=== PATIENT | female | born 1980 | race Caucasian/White ===

== ENCOUNTER 2016-09-29 12:02 | Outpatient (CLI) | payer MEDICAID | END 2016-09-29 12:03 | disposition home or self-care (01) | DX: N63 Unspecified lump in breast (principal) ==

== ENCOUNTER 2018-12-19 08:00 | Outpatient (CLI) | payer MEDICAID, OTHER ==
[2018-12-19 19:13] LABS: BASOPHILS # (AUTO) 0.1 10^3/uL (0.0-0.1); BASOPHILS % (AUTO) 1.6 %; EOSINOPHILS % (AUTO) 0.3 %; HGB - HEMOGLOBIN 13.9 g/dL (12.0-16.0); LYMPHOCYTES # (AUTO) 1.3 10^3/uL (1.5-3.5); LYMPHOCYTES % (AUTO) 25.4 %; MEAN CORPUSCULAR HEMOGLOBIN 31.3 pg (27.0-31.0); MEAN CORPUSCULAR HGB CONC 33.5 g/dL (32.0-36.0); MEAN CORPUSCULAR VOLUME 93.3 fL (81.0-99.0); MEAN PLATELET VOLUME 8.9 fL (7.9-10.8); MONOCYTES # (AUTO) 0.3 10^3/uL (0.0-1.0); NEUTROPHILS # (AUTO) 3.5 10^3/uL (1.5-6.6); NEUTROPHILS % (AUTO) 67.7 %; PLT - PLATELET COUNT 285 10^3/uL (130-450); RED BLOOD COUNT 4.43 10^6/uL (4.20-5.40); WHITE BLOOD COUNT 5.2 x10^3/uL (4.8-10.8)
[2018-12-19 19:33] LABS: ALBUMIN 4.3 g/dL (3.2-5.5); ALBUMIN/GLOBULIN RATIO 1.4 (1.0-2.2); BILIRUBIN,TOTAL 0.8 mg/dL (0.2-1.0); CALCIUM 9.1 mg/dL (8.5-10.3); CREATININE 0.7 mg/dL (0.4-1.0); TOTAL PROTEIN 7.4 g/dL (6.7-8.2)
[2018-12-19 19:41] LABS: THYROID STIMULATING HORMONE 0.86 uIU/mL (0.34-5.60)
[2018-12-19 19:50] LABS: FOLATE 15.85 ng/mL (5.90 - >24.8)
== END 2018-12-19 23:59 | disposition home or self-care (01) ==
LOC: LAB.N 08:00
PROVIDERS: ATTEND Nurse Practitioner
DX: R53.83 Other fatigue (principal); E55.9 Vitamin D deficiency, unspecified
CPT/HCPCS: 36415; 80053; 82306; 82607; 82746; 84443; 85025

== ENCOUNTER 2019-01-17 09:42 | Outpatient (CLI) | payer MEDICAID ==
--- NOTE | 2019-01-17 10:19 | Mammography Report ---
Reason: BILATERAL BREAST PAIN Procedure Date: 01/17/2019 Accession Number: [id number] / [id number] Procedure: NATALIYA - Diagnostic Dig Bilat CPT Code: FULL RESULT: EXAM: Diagnostic Dig Bilat DATE: 01/17/2019 10:09 AM CLINICAL HISTORY: Cyclical bilateral nonlocalized breast pain, not present today. No reported personal or family history of breast cancer. TECHNIQUE: (B) - Bilateral CC and MLO views were obtained. Additional bilateral 90 degree lateral views obtained. COMPARISON: 09/29/2016 PARENCHYMAL PATTERN: (D) - The breasts demonstrate heterogeneously dense fibroglandular parenchyma bilaterally. FINDINGS: Bilateral breasts: There is a stable oval mass with circumscribed margins in the anterior lower inner left breast. There are no mammographic findings of concern to correspond to cyclical nonlocalized bilateral breast pain. There are no suspicious masses, calcifications, or areas of distortion. IMPRESSION: Bilateral breasts: Benign imaging findings. No imaging finding of concern to correspond to intermittent nonlocalized breast pain. Benign. BI-RADS Category 2. Recommend annual screening mammography. RECOMMENDATION: (ANNUAL) - Recommend routine annual screening mammography. BI-RADS CATEGORY: (2) - Benign Findings. STANDARD QUALIFYING STATEMENTS: 1. This examination was not reviewed with the aid of Computer-Aided Detection (CAD). 2. A negative or benign imaging report should not preclude biopsy if clinically suspicious findings are present. 3. Dense breasts may obscure an underlying neoplasm. 4. This examination was reviewed without the aid of 3D breast imaging (tomosynthesis).
== END 2019-01-17 09:43 | disposition home or self-care (01) ==
LOC: DI 09:42
PROVIDERS: ATTEND Nurse Practitioner
DX: N64.4 Mastodynia (principal)
CPT/HCPCS: 77066

== ENCOUNTER 2019-03-13 11:50 | Outpatient (CLI) | payer MEDICAID ==
[2019-03-13 12:11] LABS: BASOPHILS % (AUTO) 0.5 %; EOSINOPHILS # (AUTO) 0.1 10^3/uL (0.0-0.7); EOSINOPHILS % (AUTO) 1.6 %; HGB - HEMOGLOBIN 13.5 g/dL (12.0-16.0); LYMPHOCYTES # (AUTO) 1.5 10^3/uL (1.5-3.5); LYMPHOCYTES % (AUTO) 18.1 %; MEAN CORPUSCULAR HEMOGLOBIN 31.8 pg (27.0-31.0); MEAN CORPUSCULAR HGB CONC 34.1 g/dL (32.0-36.0); MEAN CORPUSCULAR VOLUME 93.4 fL (81.0-99.0); MEAN PLATELET VOLUME 9.9 fL (7.9-10.8); MONOCYTES # (AUTO) 0.5 10^3/uL (0.0-1.0); MONOCYTES % (AUTO) 6.1 %; NEUTROPHILS # (AUTO) 5.9 10^3/uL (1.5-6.6); NEUTROPHILS % (AUTO) 73.3 %; PLT - PLATELET COUNT 270 10^3/uL (130-450); RED BLOOD COUNT 4.24 10^6/uL (4.20-5.40); RED CELL DISTRIBUTION WIDTH 13.4 % (12.0-15.0); WHITE BLOOD COUNT 8.1 x10^3/uL (4.8-10.8)
[2019-03-13 12:19] LABS: CALCIUM 9.2 mg/dL (8.5-10.3); CREATININE 0.7 mg/dL (0.4-1.0)
== END 2019-03-13 11:51 | disposition home or self-care (01) ==
LOC: LAB 11:50
PROVIDERS: ATTEND Obstetrics & Gynecology
DX: N84.0 Polyp of corpus uteri (principal)
CPT/HCPCS: 80048; 85025

== ENCOUNTER 2019-03-14 10:50 | Day surgery (SDC) | payer MEDICAID ==
[~2019-03-14 10:50] MED LIST: CEFAZOLIN SODIUM IN 0.9 % NACL 2 GM/100 ML BAG IV ONE
[2019-03-14 11:15] LABS: HCG UR QUAL NEGATIVE
--- NOTE | 2019-03-14 11:29 | ANESTHESIA ---
Pre-Anesthesia VS, & Labs - Diagnosis left labial polyp - Procedure excision labial polyp Vital Signs: Temp Pulse Resp BP Pulse Ox 36.8 C 77 18 134/93 H 97 03/14/19 10:57 03/14/19 10:57 03/14/19 10:57 03/14/19 10:57 03/14/19 10:57 Height 5 ft Weight (kg) 58 kg - NPO >8 hours - Is Patient ?: No - Lab Results Lab results reviewed: Yes Home Medications and Allergies Home Medications: Ambulatory Orders Cholecalciferol (Vitamin D3) [Vitamin D] 6,000 unit PO DAILY 03/13/19 Loratadine [Claritin] 10 mg PO DAILY 03/13/19 Vitamin B Complex 1 each PO DAILY 03/13/19 Cholecalciferol (Vitamin D3) [Vitamin D] 6,000 unit PO DAILY 03/13/19 Loratadine [Claritin] 10 mg PO DAILY 03/13/19 Vitamin B Complex 1 each PO DAILY 03/13/19 Allergies/Adverse Reactions: Allergies Allergy/AdvReac Type Severity Reaction Status Date / Time adhesive tape AdvReac Rash Verified 03/13/19 11:45 Anes History & Medical History - Anesthetic History Anesthesia Complications: reports: Post-Operative Nausea/Vomiting Family history of Anesthesia Complications: Reports (nausea) Family history of Malignant Hyperthermia: Denies - Medical History Cardiovascular: reports: Murmur Pulmonary: reports: Pneumonia Gastrointestinal: reports: None Urinary: reports: None Musculoskeletal: reports: Other Endocrine/Autoimmune: reports: None Skin: reports: None - Surgical History Gynecologic: section, Other Orthopedic: Other Exam General: Alert, Oriented x3, Cooperative, No acute distress Dental: WNL Mouth Openin Fingerbreadth Neck Mobility: Normal Mallampati classification: II Thyromental Distance: 4-6 cm Respiratory: Lungs clear, Normal breath sounds, No respiratory distress, No accessory muscle use Cardiovascular: Regular rate, Normal S1, Normal S2 Plan Anesthesia Type: General Consent for Procedure(s) Verified and Reviewed: Yes Code Status: Attempt Resuscitation ASA classification: 1-Healthy patient Is this case an emergency?: No
[2019-03-14] MEDS ORDERED: LACTATED RINGERS 1,000 ML IV ONE ×2 (11:30→15:52)
[2019-03-14] MEDS ORDERED: KETAMINE 500 MG/10 ML VIAL IVP ONE (13:40)
[2019-03-14] MEDS ORDERED: LIDOCAINE-MPF 2% 5 ML VIAL IM ONE (13:40)
[2019-03-14] MEDS ORDERED: MIDAZOLAM 2 MG/2 ML VIAL IVP ONE (13:40)
[2019-03-14] MEDS ORDERED: PROPOFOL 200 MG/20 ML VIAL IVP ONE (13:40)
[2019-03-14] MEDS ORDERED: BUPIVACAINE 0.25%-EPI 1:200000 PF 30 ML VIAL ONE (13:52)
[2019-03-14] MEDS ORDERED: BUPIVACAINE 0.25%-EPI 1:200000 PF 10 ML VIAL SUBQ ONE ×2 (14:21)
[2019-03-14] MEDS ORDERED: SILVER NITRATE APPLICATOR TOP ONE (14:37)
[2019-03-14] MEDS ORDERED: BACITRACIN OINT TOP ONE (14:45)
[2019-03-14] MEDS ORDERED: LORazepam 2 MG/ML VIAL IVP PRN (15:17)
[2019-03-14] MEDS ORDERED: ONDANSETRON 4 MG/2 ML VIAL IVP PRN (15:17)
[2019-03-14] MEDS ORDERED: HYDROcod/ACETAM 10 MG/325 MG TABLET PO PRN (15:17)
[2019-03-14] MEDS ORDERED: HYDROmorphone 0.5 MG/0.5 ML SYRINGE IVP PRN (15:17)
--- NOTE | 2019-03-14 15:29 | OPERATIVE REPORT ---
Operative Report - General Procedure Date: 03/14/19 Planned Procedure: Excision of left labial mass and right mons mole Pre-Op Diagnosis: left labial mass and right mons mole Procedure Performed: Excision of left labial mass and right mons mole Post Op Diagnosis: Same - Procedure Note Primary Surgeon: Luis Briceño MD Anesthesia Provider: Pradip Mendez CRNA Anesthesia Technique: MAC Pathology: left labial mass and right mons mole IV Fluids (mL): 1,000 Estimated Blood Loss (mL): 5 Indications: left labial mass and right mons mole
[2019-03-14 15:47] VITALS: BP 124/84
[2019-03-14] MEDS ORDERED: HYDROcod/ACETAM 5/325 MG TABLET ONE (15:59)
--- NOTE | 2019-03-15 01:15 | OPERATIVE REPORT ---
DATE OF SERVICE: 03/14/2019 Physician: Luis Briceño MD PREOPERATIVE DIAGNOSIS: Left labial mass, right mons mole. POSTOPERATIVE DIAGNOSIS: Left labial mass, right mons mole. PROCEDURE PERFORMED: Excision of left labial mass and the right mons mole. SURGEON: Dr. Luis Briceño. ANESTHESIA PROVIDER: Pradip Mendez CRNA. ANESTHESIA: MAC. IV FLUIDS: 1000 mL ESTIMATED BLOOD LOSS: 5 mL FINDINGS: Left labia mass as well as right mons mole. DESCRIPTION OF PROCEDURE: Patient was placed in a supine position. Following adequate IV sedation, she was prepped and draped in the usual fashion. A timeout was performed with the patient identified as well as concerns addressed. The mass on the left labia, noted to be roughly 9 mm in diameter, was locally injected with 0.25% Marcaine with epinephrine. The mass was excised in toto with a #15 blade. Electrocautery was used for hemostasis at the base. The incision itself was then closed using 3-0 Vicryl subcuticular. The area was inspected. No further bleeding was noted. Attention was turned to the right mons mole. This was roughly 1 cm in diameter. This was excised in elliptical fashion. Electrocautery was used at the base for hemostasis. Hemostasis was noted to be good. This was then closed deep with 3-0 Vicryl and then a subcuticular stitch of 4-0 Monocryl was placed. At this point, the area was inspected, bleeding was noted, so this was treated with Dermabond. The labia was noted to have some oozing, so pressure was maintained for roughly 2 minutes continuously. There was no evidence of any bleeding. At this point, the procedure was terminated. Patient tolerated the procedure well and was taken to recovery in stable condition. TD: 03/14/2019 15:36 JESÚS
--- NOTE | 2019-03-15 02:58 | OPERATIVE REPORT ---
DATE OF SERVICE: 03/14/2019 Physician: Luis Briceño MD PREOPERATIVE DIAGNOSES 1. Left labial mass. 2. Right mons mole. POSTOPERATIVE DIAGNOSES 1. Left labial mass. 2. Right mons mole. PROCEDURE: Excision of left labial mass and excision of right mons mole. SURGEON: Luis Briceño MD ANESTHESIA: Pradip Mendez CRNA ANESTHETIC: MAC. MATERIALS TO PATHOLOGY: Left labial mass, right mons mole. ESTIMATED BLOOD LOSS: 5 mL INTRAVENOUS FLUIDS: 1000 mL DESCRIPTION OF PROCEDURE: Following adequate IV sedation, patient was placed in a supine position in Jimmy stirrups. At this point, she was prepped and draped in the usual fashion. A timeout was perf ormed, in which the issues were addressed and the patient identified. Following local anesthesia wit h 0.25% Marcaine with epinephrine in the left labia, the labial mass was excised in its entirety usin g a #15 blade. The base was treated with electrocautery and then closed utilizing 3-0 Vicryl with a subcuticular stitch of 3-0 Vicryl. The area showed evidence of good hemostasis. At this point, atte ntion was turned to the right mons mole. This was excised in elliptical fashion with a #15 blade. E lectrocautery was utilized at its base and it was closed deep with 3-0 Vicryl and then subcuticular w ith 4-0 Monocryl. Good hemostasis was observed and so Dermabond was placed on the mons excision site . Patient tolerated the procedure well and was taken to Recovery in stable condition. TD: 03/14/2019 16:20
== END 2019-03-14 10:51 | disposition home or self-care (01) ==
LOC: SDS 10:50
PROVIDERS: ATTEND Obstetrics & Gynecology
PROC: 0UBMXZZ Excision of Vulva, External Approach (ICD-10-PCS; principal; 2019-03-14 12:30)
DX: D28.0 Benign neoplasm of vulva (principal)
CPT/HCPCS: 11421; 12041; 81025; A9270; J0690; J7120

== ENCOUNTER 2019-05-19 14:32 | Emergency (ER) | payer MEDICAID ==
[2019-05-19] MEDS ORDERED: PROMETHAZINE INJ 25 MG in SODIUM CHLORIDE 0.9% 50 ML IV STA (15:06)
[2019-05-19] MEDS ORDERED: SODIUM CHLORIDE 0.9% 1,000 ML IV ONE (15:06)
[2019-05-19] MEDS ORDERED: diphenhydrAMINE INJ 50 MG/ML VIAL IVP STA (15:06)
[2019-05-19] MEDS ORDERED: KETOROLAC 30 MG/ML VIAL IVP STA (15:06)
--- NOTE | 2019-05-19 15:10 | ED Physician Documentation ---
History of Present Illness - Stated complaint Stated Complaint: FEVER/LORENZO - Chief complaint Chief Complaint: Fever - History obtained from History obtained from: Patient, Family - History of Present Illness Timing: How many days ago (2) Pain level max: 8 Pain level now: 6 Improved by: dark room, rest Worsened by: light, noise - Additonal information Additional information: 39-year-old female presents to the emergency department with fevers, headache and sinus pressure for the last 2 days. She has a history of migraine headaches and states that this feels more like sinus pressure. She is concerned that she may have histoplasmosis due to exposure from [place] over the summer. No neck or back pain. No abdominal pain. No vomiting. No diarrhea. No urinary symptoms. Took Tylenol earlier today. Review of Systems Constitutional: reports: Fever Ears: denies: Ear pain Nose: reports: Sinus pressure / pain. 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 : None HEENT: Chronic sinusitis Psych: None Musculoskeletal: Other Derm: None - Past Surgical History Past Surgical History: Yes Ortho: Other /ACCOUNTANT ASSISTANT: section, Other - Present Medications Home Medications: Ambulatory Orders Medication Instructions Recorded Confirmed Cholecalciferol (Vitamin D3) 6,000 unit PO DAILY 03/13/19 03/14/19 [Vitamin D] Loratadine [Claritin] 10 mg PO DAILY 03/13/19 03/14/19 Vitamin B Complex 1 each PO DAILY 03/13/19 03/14/19 Sulfamethox/Trimeth 800/160 1 each PO BID #20 tablet 05/19/19 [Bactrim Ds 800/160] - Allergies Allergies/Adverse Reactions: Allergies Allergy/AdvReac Type Severity Reaction Status Date / Time adhesive tape AdvReac Rash Verified 05/19/19 14:40 - Social History Does the pt smoke?: No Smoking Status: Never smoker Does the pt drink ETOH?: Yes Does the pt have substance abuse?: No - Immunizations Immunizations are current?: Yes - POLST Patient has POLST: No PD ED PE NORMAL - Vitals Vital signs reviewed: Yes - General General: Alert and oriented X 3, No acute distress, Well developed/nourished - HEENT HEENT: PERRL, Ears normal, Moist mucous membranes, Pharynx benign, Other (TTP over the frontal sinuses. ) - Neck Neck: Supple, no meningeal sign, No adenopathy - Cardiac Cardiac: RRR, Strong equal pulses - Respiratory Respiratory: No respiratory distress, Clear bilaterally - Abdomen Abdomen: Soft, Non tender, Non distended - Back Back: No CVA TTP, No spinal TTP - Derm Derm: Warm and dry, No rash - Extremities Extremities: No edema, No calf tenderness / cord - Neuro Neuro: Alert and oriented X 3, fighting vehicle systems maintainer 2-12 intact, No motor deficit, No sensory deficit, Normal speech - Psych Psych: Normal mood, Normal affect Results - Vitals Vitals: Vital Signs - 24 hr 05/19/19 05/19/19 14:38 16:24 Temperature 37.4 C 36.9 C Heart Rate 110 H 77 Respiratory 20 16 Rate Blood Pressure 112/70 96/59 L O2 Saturation 98 98 Oxygen O2 Source Room air - Labs Labs: Laboratory Tests 05/19/19 05/19/19 05/19/19 15:15 15:15 16:10 WBC 16.5 H RBC 4.01 L Hgb 12.9 Hct 37.6 MCV 93.8 MCH 32.2 H MCHC 34.3 RDW 13.2 Plt Count 244 MPV 9.4 Neut # (Auto) 14.2 H Lymph # (Auto) 0.7 L [place] # (Auto) 1.6 H Eos # (Auto) 0.0 Baso # (Auto) 0.1 Absolute Nucleated RBC 0.00 Band Neuts % (Manual) Not Reportable Abnorm Lymph % (Manual) Not Reportable Nucleated RBC % 0.0 Neutrophils # (Manual) Not Reportable Lymphocytes # (Manual) Not Reportable Monocytes # (Manual) Not Reportable Eosinophils # (Manual) Not Reportable Basophils # (Manual) Not Reportable Differential Comment MANUAL=AUTO DIFF Platelet Estimate NORMAL (130-450,000) Platelet Morphology NORMAL APPEARANCE RBC Morph Micro Appear NORMAL APPEARANCE Sodium 137 Potassium 3.1 L Chloride 105 Carbon Dioxide 23 Anion Gap 9.0 BUN 13 Creatinine 0.7 Estimated GFR (MDRD) 92 Glucose 135 H Calcium 9.0 Total Bilirubin 0.5 AST 12 ALT 12 Alkaline Phosphatase 65 Total Protein 7.2 Albumin 3.5 Globulin 3.7 Albumin/Globulin Ratio 0.9 L Lipase 20 L Urine Color YELLOW Urine Clarity CLOUDY Urine pH 6.0 Ur Specific [place] 1.020 Urine Protein 30 H Urine Glucose (UA) NEGATIVE Urine Ketones 40 H Urine Occult Blood MODERATE H Urine Nitrite NEGATIVE Urine Bilirubin NEGATIVE Urine Urobilinogen 1 (NORMAL) Ur Leukocyte Esterase TRACE H Urine RBC 6-10 H Urine WBC 6-10 H Ur Squamous Epith Cells RARE Squamous Urine Bacteria Rare Ur Microscopic Review INDICATED Urine Culture Comments INDICATED Urine HCG, Qual NEGATIVE - Rads (name of study) cxr Radiology: Prelim report reviewed, EMP read contemporaneously, See rad report (Normal) PD MEDICAL DECISION MAKING - ED course Complexity details: reviewed results, re-evaluated patient, considered differential, d/w patient ED course: 39-year-old female presents to the emergency department that appears to be sinusitis and a UTI. Will place on Bactrim for this. She feels better after IV fluids. Headache resolved with Toradol, Phenergan and Benadryl. Tolerating p.o. without difficulty. No evidence of histoplasmosis on x-ray. Blood work is not available to be ordered here for histo. Recommend that she follow-up with her doctor for further evaluation of this. Patient counseled regarding signs and symptoms for which I believe and urgent re-evaluation would be necessary. Patient with good understanding of and agreement to plan and is comfortable going home at this time This document was made in part using voice recognition software. While efforts are made to proofread this document, sound alike and grammatical errors may occur. Departure - Departure Disposition: Home, Self Care Clinical Impression: Sinusitis Qualifiers: Sinusitis location: frontal Chronicity: acute Recurrence: non-recurrent Qualified Code(s): J01.10 - Acute frontal sinusitis, unspecified UTI (urinary tract infection) Qualifiers: Urinary tract infection type: acute cystitis Hematuria presence: without hematuria Qualified Code(s): N30.00 - Acute cystitis without hematuria Condition: Good Instructions: ED Sinusitis Abx Tx, ED UTI Cystitis Female Follow-Up: Provider,Other [Primary Care Provider] - Within 1 week Prescriptions: Sulfamethox/Trimeth 800/160 [Bactrim Ds 800/160] 1 each PO BID #20 tablet Comments: Take all antibiotics until gone. Return if you worsen. Follow-up with your doctor for further care. Drink plenty of fluids Forms: Activity restrictions Discharge Date/Time: 05/19/19 17:02
[2019-05-19 15:22] LABS: BASOPHILS # (AUTO) 0.1 10^3/uL (0.0-0.1); BASOPHILS % (AUTO) 0.3 %; HGB - HEMOGLOBIN 12.9 g/dL (12.0-16.0); LYMPHOCYTES # (AUTO) 0.7 10^3/uL (1.5-3.5); MEAN CORPUSCULAR HEMOGLOBIN 32.2 pg (27.0-31.0); MEAN CORPUSCULAR HGB CONC 34.3 g/dL (32.0-36.0); MEAN CORPUSCULAR VOLUME 93.8 fL (81.0-99.0); MEAN PLATELET VOLUME 9.4 fL (7.9-10.8); MONOCYTES # (AUTO) 1.6 10^3/uL (0.0-1.0); MONOCYTES % (AUTO) 9.4 %; NEUTROPHILS # (AUTO) 14.2 10^3/uL (1.5-6.6); NEUTROPHILS % (AUTO) 85.6 %; PLT - PLATELET COUNT 244 10^3/uL (130-450); RED BLOOD COUNT 4.01 10^6/uL (4.20-5.40); RED CELL DISTRIBUTION WIDTH 13.2 % (12.0-15.0); WHITE BLOOD COUNT 16.5 x10^3/uL (4.8-10.8)
[2019-05-19 15:34] LABS: ALBUMIN 3.5 g/dL (3.2-5.5); ALBUMIN/GLOBULIN RATIO 0.9 (1.0-2.2); BILIRUBIN,TOTAL 0.5 mg/dL (0.2-1.0); CREATININE 0.7 mg/dL (0.4-1.0); TOTAL PROTEIN 7.2 g/dL (6.7-8.2)
[2019-05-19 15:53] LABS: DIFFERENTIAL COMMENT MANUAL=AUTO DIFF; PLATELET ESTIMATE, MANUAL NORMAL (130-450,000) (NORMAL); PLATELET MORPHOLOGY NORMAL APPEARANCE (NORMAL); RBC MORPHOLOGY (MULTIPLE) NORMAL APPEARANCE (NORMAL)
--- NOTE | 2019-05-19 16:00 | XRAY Report ---
Reason: fever Procedure Date: 05/19/2019 Accession Number: [id number] / [id number] Procedure: XR - Chest 2 View X-Ray CPT Code: 39946 FULL RESULT: EXAM: CHEST RADIOGRAPHY EXAM DATE: 05/19/2019 03:38 PM. CLINICAL HISTORY: Fever. COMPARISON: None. TECHNIQUE: 2 views. FINDINGS: Lungs/Pleura: No focal lung consolidation. No pleural effusion. No pneumothorax. Mediastinum: Cardiac silhouette size appears unremarkable. Other: None. IMPRESSION: No focal lung consolidation or pleural effusions. RADIA
[2019-05-19 16:16] LABS: GLUCOSE, URINE (UA) NEGATIVE (NEGATIVE); KETONES,URINE (UA) 40 mg/dL (NEGATIVE); LEUKOCYTE ESTERASE, URINE TRACE (NEGATIVE); NITRITE,URINE NEGATIVE (NEGATIVE); OCCULT BLOOD,URINE MODERATE (NEGATIVE); PROTEIN,URINE 30 mg/dL (NEGATIVE); UROBILINOGEN,URINE 1 (NORMAL) E.U./dL (NORMAL)
[2019-05-19 16:23] LABS: CLARITY,URINE CLOUDY (CLEAR)
[2019-05-19 16:24] LABS: BACTERIA,URINE Rare /HPF (None Seen); BILIRUBIN,URINE NEGATIVE (NEGATIVE); HCG UR QUAL NEGATIVE; ICTOTEST,URINE NEGATIVE; SQUAMOUS EPITHELIAL CELL,UR RARE Squamous (<= Few)
[2019-05-19 16:25] VITALS: BP 96/59
[2019-05-19] MEDS ORDERED: cefTRIAXone 1 GM VIAL IVP STA (16:38)
== END 2019-05-19 17:02 | disposition home or self-care (01) ==
LOC: ED 14:32
DX: J01.10 Acute frontal sinusitis, unspecified (principal); N30.00 Acute cystitis without hematuria; Z86.69 Personal history of other diseases of the nervous system and sense organs
CPT/HCPCS: 36415; 71046; 80053; 81001; 81025; 83690; 85025; 87086; 87181; 96365; 96375; 99283; 99285; J1200; J7040; 81003

== ENCOUNTER 2020-01-18 19:37 | Emergency (ER) | payer MEDICAID, OTHER ==
[2020-01-18 19:45] VITALS: BP 153/83
[2020-01-18] MEDS ORDERED: LIDOCAINE VISCOUS 2% 15 ML UDC MM STA (19:51)
--- NOTE | 2020-01-18 19:53 | ED Physician Documentation ---
PD HPI HEENT - Stated complaint Stated Complaint: FOREIGN OBJECT IN THROAT - Chief complaint Chief Complaint: Heent - History obtained from History obtained from: Patient (She was eating steak just prior to arrival and now has a severe foreign body sensation near the cricoid. 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 HEENT: Chronic sinusitis Psych: None Musculoskeletal: Other Derm: None - Past Surgical History Past Surgical History: Yes Ortho: Other /CHAIR CAR DRIVER: section, Other - Present Medications Home Medications: Ambulatory Orders Medication Instructions Recorded Confirmed Cholecalciferol (Vitamin D3) 6,000 unit PO DAILY 03/13/19 03/14/19 [Vitamin D] Loratadine [Claritin] 10 mg PO DAILY 03/13/19 03/14/19 Vitamin B Complex 1 each PO DAILY 03/13/19 03/14/19 Sulfamethox/Trimeth 800/160 1 each PO BID #20 tablet 05/19/19 [Bactrim Ds 800/160] - Allergies Allergies/Adverse Reactions: Allergies Allergy/AdvReac Type Severity Reaction Status Date / Time adhesive tape AdvReac Rash Verified 01/18/20 19:45 - Social History Does the pt smoke?: No Smoking Status: Never smoker Does the pt drink ETOH?: Yes Does the pt have substance abuse?: No - Immunizations Immunizations are current?: Yes - POLST Patient has POLST: No PD ED PE NORMAL - Vitals Vital signs reviewed: Yes - General General: Alert and oriented X 3, No acute distress - HEENT HEENT: Other (Voice is slightly hoarse, visualized portion of the oropharynx are normal. She is tolerating her secretions.) - Neck Neck: Supple, no meningeal sign, No bony TTP - Neuro Neuro: Alert and oriented X 3, Normal speech Results - Vitals Vitals: Vital Signs - 24 hr 01/18/20 01/18/20 19:41 20:12 Temperature 36.3 C L Heart Rate 76 Respiratory 16 16 Rate Blood Pressure 153/83 H O2 Saturation 100 Oxygen O2 Source Room air PD MEDICAL DECISION MAKING - ED course ED course: 39-year-old woman with a throat foreign body sensation after swallowing steak. She felt better briefly after lidocaine here. Soft tissue neck x-ray was negative. Her voice improved after the lidocaine and she was able to tolerate drinking water. I offered to either try to transfer her for ENT evaluation tonight or consideration for sedation and glide scope visualization. She prefers watchful waiting at home. Departure - Departure Disposition: Home, Self Care Clinical Impression: Foreign body sensation in throat Condition: Good Record reviewed to determine appropriate education?: Yes Instructions: ED Foreign Body Esophageal Rslv Comments: Return anytime if worse, if not better by Tuesday you can follow-up with ear nose and throat physicians, the closest is in [place], phone number is [phone]. I would stick to just liquids for the next 12 hours then you can try to advance to soft diet and then full diet if not having any issues. If you are fine on Tuesday I do not think any specific follow-up is necessary.
--- NOTE | 2020-01-18 20:31 | XRAY Report ---
Reason: FB sensation throat Procedure Date: 01/18/2020 Accession Number: [id number] / [id number] Procedure: XR - Neck Soft Tissue CPT Code: Final Report FULL RESULT: EXAM: SOFT TISSUE NECK RADIOGRAPHY EXAM DATE: 01/18/2020 08:14 PM. CLINICAL HISTORY: Foreign body sensation in throat. COMPARISONS: None. TECHNIQUE: 2 views. FINDINGS: Soft Tissues: No prevertebral soft tissue swelling. The epiglottis and aryepiglottic folds are unremarkable. No tonsillar or adenoidal enlargement. No radiopaque foreign body. Regional Skeleton: Unremarkable for age. Other: The visualized lung apices are clear. IMPRESSION: Normal soft tissue neck radiography. RADIA
== END 2020-01-18 20:50 | disposition home or self-care (01) ==
LOC: ED 19:37
DX: R09.89 Other specified symptoms and signs involving the circulatory and respiratory systems (principal)
CPT/HCPCS: 70360; 99283

== ENCOUNTER 2020-01-21 15:45 | Emergency (ER) | payer OTHER ==
[2020-01-21 17:57] VITALS: BP 134/77
--- NOTE | 2020-01-21 18:09 | ED Physician Documentation ---
PD HPI HEENT - Stated complaint Stated Complaint: FOREIGN OBJECT IN THROAT - Chief complaint Chief Complaint: Heent - History obtained from History obtained from: Patient - History of Present Illness Timing - onset: Other (I saw her 2 nights ago for foreign body sensation in throat. She was able to tolerate liquids and still cannot. The sensation is persistent. 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 : None HEENT: Chronic sinusitis Psych: None Musculoskeletal: Other Derm: None - Past Surgical History Past Surgical History: Yes Ortho: Other /SPLIT LEATHER DEPARTMENT SUPERVISOR: section, Other - Present Medications Home Medications: Ambulatory Orders Medication Instructions Recorded Confirmed Cholecalciferol (Vitamin D3) 6,000 unit PO DAILY 03/13/19 03/14/19 [Vitamin D] Loratadine [Claritin] 10 mg PO DAILY 03/13/19 03/14/19 Vitamin B Complex 1 each PO DAILY 03/13/19 03/14/19 Sulfamethox/Trimeth 800/160 1 each PO BID #20 tablet 05/19/19 [Bactrim Ds 800/160] - Allergies Allergies/Adverse Reactions: Allergies Allergy/AdvReac Type Severity Reaction Status Date / Time adhesive tape AdvReac Rash Verified 01/21/20 15:52 - Social History Does the pt smoke?: No Smoking Status: Never smoker Does the pt drink ETOH?: Yes Does the pt have substance abuse?: No Substance Use and Type: Marijuana - Immunizations Immunizations are current?: Yes - POLST Patient has POLST: No PD ED PE NORMAL - Vitals Vital signs reviewed: Yes - General General: Alert and oriented X 3, No acute distress - HEENT HEENT: Other (Voice sounds a little better than it did the other night. Still little hoarse and still appearing somewhat uncomfortable.) - Neuro Neuro: Alert and oriented X 3, Normal speech Results - Vitals Vitals: Vital Signs - 24 hr 01/21/20 01/21/20 01/21/20 15:52 17:53 17:57 Temperature 37.4 C 37.0 C 37.1 C Heart Rate 83 96 77 Respiratory 14 16 16 Rate Blood Pressure 149/82 H 124/70 134/77 H O2 Saturation 98 98 99 Oxygen O2 Source Room air Departure - Departure Disposition: 01 Home, Self Care Clinical Impression: Foreign body sensation in throat Condition: Good Record reviewed to determine appropriate education?: Yes Comments: Yadira I spoke with Dr. Aquilino Baron, I gave him your phone number, he says they will call you tomorrow morningbetween 730 and 8 AM to arrange to see you tomorrow.
== END 2020-01-21 18:34 | disposition home or self-care (01) ==
LOC: ED 15:45
DX: R09.89 Other specified symptoms and signs involving the circulatory and respiratory systems (principal); R49.0 Dysphonia
CPT/HCPCS: 99281; 99283

== ENCOUNTER 2020-09-30 10:25 | Outpatient (CLI) | payer OTHER | END 2020-09-30 10:26 | disposition home or self-care (01) | LOC: DI 10:25 | PROVIDERS: ATTEND Obstetrics & Gynecology | DX: R01.1 Cardiac murmur, unspecified (principal) | CPT/HCPCS: 93306 ==

== ENCOUNTER 2020-09-30 10:26 | Outpatient (CLI) | payer OTHER ==
--- NOTE | 2020-10-01 10:27 | Mammography Report ---
BILATERAL DIGITAL SCREENING MAMMOGRAM 3D/2D: 09/30/2020 CLINICAL: Routine screening. Comparison is made to exams dated: 01/17/2019 mammogram, 09/29/2016 ultrasound, and 09/29/2016 [facility]. The tissue of both breasts is heterogeneously dense. This may low er the sensitivity of mammography. There is a new irregular focal asymmetry with a circumscribed margin in the left breast at 6 o'clock middle depth. Finding is seen only on tomography. No other significant masses, calcifications, or other findings are seen in either breast. IMPRESSION: INCOMPLETE: NEEDS ADDITIONAL IMAGING EVALUATION The new irregular focal asymmetry in the left breast is indeterminate. A diagnostic mammogram and ultrasound is recommended. This exam was interpreted at Station ID: [id number]. NOTE: For mammograms, a report in lay terms will be sent to the patient. Approximately 15% of breast malignancies will not be visualized mammographically. In the management of a palpable breast mass, a negative mammogram must not discourage biopsy of a clinically suspicious lesion. Electronically Signed By: Rizwan Osorio acr/:09/30/2020 13:01:14 ACR BI-RADS Category 0: Incomplete 3340F PARENCHYMAL PATTERN: (D) - The breast(s) demonstrate(s) heterogeneously dense fibroglandular parran sauceda. BI-RADS CATEGORY: (0) - 0 Mammo and [place] [id number] Immediate follow-up LATERALITY: (L)
== END 2020-09-30 10:27 | disposition home or self-care (01) ==
LOC: DI 10:26
PROVIDERS: ATTEND Obstetrics & Gynecology
DX: Z12.31 Encounter for screening mammogram for malignant neoplasm of breast (principal); N64.89 Other specified disorders of breast

== ENCOUNTER 2020-10-17 10:56 | Outpatient (CLI) | payer OTHER ==
--- NOTE | 2020-10-20 12:56 | Ultrasound Report ---
LIMITED ULTRASOUND OF LEFT BREAST: 10/17/2020 CLINICAL: Short term follow up for the left breast. Comparison is made to exams dated: 10/17/2020 mammogram, 09/30/2020 mammogram, and 01/17/2019 mammogram - [facility]. Color flow and real-time ultrasound of the left breast 6 o'clock region were performed. Yuan scale i mages of the real-time examination were reviewed. There is a 1.1 cm x 0.7 cm x 0.3 cm oval mass with a microlobulated margin in the left breast at 5 o' clock middle depth 8 cm from the nipple. This oval mass is hypoechoic with a well-defined boundary. This correlates with mammography findings. Color flow imaging demonstrates that there is an adjacen t vascularity. IMPRESSION: PROBABLY BENIGN The 1.1 cm x 0.7 cm x 0.3 cm oval mass in the left breast resembles a lymph node or a fibroadenoma an d is probably benign. A follow-up mammogram and an ultrasound in 6 months is recommended to demonstrate stability. Exam findings were discussed with the patient. Patient is advised to monitor for significant change. This exam was interpreted at Station ID: [id number]. Electronically Signed By: Ulysses Curiel M.D. slc/:10/17/2020 13:09:59 Ultrasound BI-RADS: 3 Probably benign BI-RADS CATEGORY: (3) - 3 Mammo and [place] [id number] 6 month follow-up LATERALITY: (B)
--- NOTE | 2020-10-20 12:56 | Mammography Report ---
UNILATERAL LEFT DIGITAL DIAGNOSTIC MAMMOGRAM 3D/2D: 10/17/2020 CLINICAL: Patient returns today to evaluate a focal asymmetry in the left breast. Comparison is made to exams dated: 09/30/2020 mammogram, 01/17/2019 mammogram, and 09/29/2016 mammogram - [facility]. The tissue of left breast is heterogeneously dense. This may lower the sensitivity of mammography. There is a 1.5 cm oval mass with a microlobulated margin in the left breast at 6 o'clock middle depth . No other significant masses or calcifications are seen in the breast. IMPRESSION: INCOMPLETE: NEEDS ADDITIONAL IMAGING EVALUATION The 1.5 cm oval mass in the left breast is indeterminate. A targeted ultrasound is recommended and will immediately follow. This exam was interpreted at Station ID: [id number]. NOTE: For mammograms, a report in lay terms will be sent to the patient. Approximately 15% of breast malignancies will not be visualized mammographically. In the management of a palpable breast mass, a negative mammogram must not discourage biopsy of a clinically suspicious lesion. Electronically Signed By: Ulysses Curiel M.D. slc/:10/17/2020 13:05:31 ACR BI-RADS Category 0: Incomplete 3340F PARENCHYMAL PATTERN: (D) - The breast(s) demonstrate(s) heterogeneously dense fibroglandular cristo sauceda. BI-RADS CATEGORY: (0) - 0 Ultrasound [id number] Immediate follow-up LATERALITY: (B)
== END 2020-10-17 10:57 | disposition home or self-care (01) ==
LOC: DI 10:56
PROVIDERS: ATTEND Obstetrics & Gynecology
DX: N63.25 Unspecified lump in the left breast, overlapping quadrants (principal)

== ENCOUNTER 2020-11-27 09:26 | Outpatient (CLI) | payer OTHER ==
[~2020-11-27 09:26] MED LIST changes: +BUFFERED LIDOCAINE 10 ML SYRINGE ONE; -CEFAZOLIN SODIUM IN 0.9 % NACL 2 GM/100 ML BAG IV ONE
[2020-11-27] MEDS ORDERED: BUPIVACAINE 0.5% PF 10 ML VIAL ONE (10:59)
[2020-11-27] MEDS ORDERED: BUFFERED LIDOCAINE 10 ML SYRINGE ONE (10:59)
[2020-11-27] MEDS: BUFFERED LIDOCAINE 10 ML SYRINGE IU ONE ×2 (15:05→15:07)
[2020-11-27] MEDS ORDERED: LIDOCAINE 1%-EPI 1:100000 30 ML MDV SUBQ ONE (16:00)
[2020-11-27] MEDS ORDERED: LIDOCAINE MPF 1%-EPI 1:200000 30 ML VIAL SUBQ ONE (16:00)
--- NOTE | 2020-11-28 08:20 | Mammography Report ---
UNILATERAL LEFT DIGITAL DIAGNOSTIC MAMMOGRAM 3D/2D: 11/27/2020 CLINICAL: Post left breast ultrasound biopsy clip placement imaging. Comparison is made to exams dated: 10/17/2020 ultrasound and 10/17/2020 mammogram - [facility]. The tissue of left breast is heterogeneously dense. This may lower the sensitivity of ma mmography. There is a marker clip in the appropriate position in the left breast at 6 o'clock middle depth for m ass described at 8 cm from the nipple. This marker clip placement is at the biopsy site. There also is a marker clip in the appropriate position in the left breast at 5 o'clock middle depth seen toady at 7 cm from the nipple. This marker clip placement is at the biopsy site. IMPRESSION: POST PROCEDURE MAMMOGRAM FOR MARKER PLACEMENT There was a successful marker clip placement in the left breast at 6 o'clock middle depth. There was a successful marker clip placement in the left breast at 5 o'clock middle depth. This exam was interpreted at Station ID: [id number]. NOTE: For mammograms, a report in lay terms will be sent to the patient. Approximately 15% of breast malignancies will not be visualized mammographically. In the management of a palpable breast mass, a negative mammogram must not discourage biopsy of a clinically suspicious lesion. Electronically Signed By: Rodney Leonard M.D. aty/:11/27/2020 18:01:49 ACR BI-RADS Category Post-procedure mammogram for marker placement PARENCHYMAL PATTERN: (D) - The breast(s) demonstrate(s) heterogeneously dense fibroglandular parenchy ma. BI-RADS CATEGORY: () - Unspecified - other recall n/a LATERALITY: (B)
--- NOTE | 2020-12-01 10:00 | Ultrasound Report ---
ULTRASOUND GUIDED BIOPSY LEFT BREAST USING VACUUM DEVICE WITH MARKING DEVICE INSERTED AND POST MAMMOG RAPHIC IMAGIN11/27/2020 CLINICAL: Left breast mass. PATIENT CONSENT: Risks (minor bleeding, infection, vasovagal reaction and repeat procedure), benefits and alternatives were explained to the patient and written informed consent was obtained. Correlation is made to exams dated: 11/27/2020 mammogram, 10/17/2020 ultrasound, 10/17/2020 mammogram, 09/30/2020 mammogram, 01/17/2019 mammogram, and 09/29/2016 ultrasound - [facility]. An ultrasound guided biopsy using real-time ultrasound was performed for the 1.5 cm x 0.8 cm x 1.1 cm oval mass located in the left breast at 5 o'clock middle depth 7 cm from the nipple. The skin was p repped in the usual manner. Local anesthetic was administered to the access site. A skin jayden was m ines in the breast. The abnormality was approached from the lateral aspect. A 13 gauge biopsy needle was placed adjacent to the abnormality under ultrasound guidance. Once the needle was documented to be in the correct location, six specimens were obtained using the Mammotome biopsy system. A hydrom ark clip was inserted into the biopsy cavity. A sterile dressing was applied to the access site. Po st procedure mammographic imaging demonstrates the location device at the targeted area. The specime ns were sent to the laboratory for pathological analysis. IMPRESSION: ULTRASOUND GUIDED BIOPSY BENIGN Ultrasound guided biopsy of the 1.5 cm x 0.8 cm x 1.1 cm mass in the left breast at 5 o'clock middle depth 7 cm from the nipple was successful. Pathology indicates benign fibroadenoma and background fi brocystic changes (FC). Pathology results are concordant with imaging findings. Return to annual mammogram screening schedule is recommended. This exam was interpreted at Station ID: [id number]. Rodney Leonard M.D. aty/:12/01/2020 08:19:37 BI-RADS CATEGORY: () - Mammogram [id number] return to screening LATERALITY: (B)
--- NOTE | 2020-12-01 10:00 | Ultrasound Report ---
ULTRASOUND GUIDED BIOPSY LEFT BREAST WITH MARKING DEVICE INSERTED AND POST MAMMOGRAPHIC IMAGIN11/27 CLINICAL: Left breast mass. PATIENT CONSENT: Risks (minor bleeding, infection, vasovagal reaction and repeat procedure), benefits and alternatives were explained to the patient and written informed consent was obtained. Correlation is made to exams dated: 11/27/2020 mammogram, 10/17/2020 ultrasound, 10/17/2020 mammogram, 09/30/2020 mammogram, 01/17/2019 mammogram, and 09/29/2016 ultrasound - [facility]. An ultrasound guided biopsy using real-time ultrasound was performed for the 1.1 cm x 0.7 cm x 0.4 cm circumscribed lobulated mass located in the left breast at 6 o'clock middle depth 8 cm from the nipp le. This was described on the previous mammography and ultrasound reports. The skin was prepped in the usual manner. Local anesthetic was administered to the access site. The abnormality was approac hed from the lateral aspect. A 16 gauge biopsy needle was placed adjacent to the abnormality through an introducer device under ultrasound guidance. Once the needle was documented to be in the correct location, eight specimens were obtained using the Marquee biopsy device. A clip was inserted into t he biopsy cavity. A sterile dressing was applied to the access site. Post procedure mammographic im aging demonstrates the location device at the targeted area. The specimens were sent to the [facility] for pathological analysis. IMPRESSION: ULTRASOUND GUIDED BIOPSY BENIGN Ultrasound guided biopsy of the 1.1 cm x 0.7 cm x 0.4 cm mass in the left breast at 6 o'clock middle depth 8 cm from the nipple was successful. Pathology indicates benign circumscribed focus of scleros ing adenosis (SA). Pathology results are concordant with imaging findings. Return to annual mammogram screening schedule is recommended. This exam was interpreted at Station ID: [id number]. Rodney Leonard M.D. aty/:12/01/2020 08:21:27 BI-RADS CATEGORY: () - Mammogram [id number] return to screening LATERALITY: (B)
== END 2020-11-27 09:27 | disposition home or self-care (01) ==
LOC: DI 09:26
PROVIDERS: ATTEND Surgery
DX: R92.8 Other abnormal and inconclusive findings on diagnostic imaging of breast (principal); D24.2 Benign neoplasm of left breast; N60.12 Diffuse cystic mastopathy of left breast; N60.22 Fibroadenosis of left breast
CPT/HCPCS: 19083; 19084

== ENCOUNTER 2021-02-23 08:28 | Outpatient (CLI) | payer OTHER ==
--- NOTE | 2021-02-24 14:26 | Ultrasound Report ---
LIMITED ULTRASOUND OF RIGHT BREAST: 02/23/2021 CLINICAL: Patient returns for additional imaging over a suspected mass in the right breast. Comparison is made to exams dated: 01/30/2021 breast MRI - [facility], 11/27/2020 ultrasound biop sy, 11/27/2020 ultrasound biopsy, 11/27/2020 mammogram, 10/17/2020 ultrasound, and 10/17/2020 mammogram - [facility]. Color flow ultrasound of the right breast 7 o'clock region was performed on the areas of interest. G ray scale images of the real-time examination were reviewed. There is a 1.2 cm x 0.6 cm x 0.4 cm oval mass with an indistinct margin in the right breast at 7 o'cl ock middle depth. This oval mass is hypoechoic. This correlates with breast MRI findings. Color fl ow imaging demonstrates that there is no vascularity present. IMPRESSION: PROBABLY BENIGN The 1.2 cm x 0.6 cm x 0.4 cm oval mass in the right breast resembles a fibroadenoma and is probably b enign. A follow-up in 6 months is recommended with subsequent imaging every 6 months for 2 years of total follow-up. The option of an ultrasound guided biopsy was discussed with the patient and patient elected to perform serial followup imaging. Follow-up in 6 months is recommended to demonstrate stability. Given the recommended follow-up MRI fo r the finding in the left breast on prior MRI which was not detected sonographically, followup of the right breast mass may be performed on the same exam. Subsequent followup may be performed with ultra sound. Serial imaging is recommended every 6 months to demontrate 2 year stability. The findings were discussed with the patient at the conclusion of the study by Dr. Lee. This exam was interpreted at Station ID: [id number]. Electronically Signed By: Stephen Hubbard M.D. ddp/:02/23/2021 10:23:06 Ultrasound BI-RADS: 3 Probably benign BI-RADS CATEGORY: (3) - 3 Ultrasound [id number] 6 month follow-up LATERALITY: (B)
--- NOTE | 2021-02-24 14:26 | Ultrasound Report ---
LIMITED ULTRASOUND OF LEFT BREAST: 02/23/2021 CLINICAL: Patient returns for additional imaging over a suspected mass in the left breast. Comparison is made to exams dated: 01/30/2021 breast MRI - [facility], 11/27/2020 ultrasound biop sy, 11/27/2020 ultrasound biopsy, 11/27/2020 mammogram, 10/17/2020 ultrasound, and 10/17/2020 mammogram - [facility]. Real-time ultrasound of the left breast 6 o'clock, 12 o'clock, and retroareolar regions was performe d on the areas of interest. Yuan scale images of the real-time examination were reviewed. No discrete cystic or solid mass lesion identified in the area of MRI abnormality. IMPRESSION: PROBABLY BENIGN There is no abnormality seen in the left breast to correspond with the breast MRI finding in the post erior depth central to the nipple. A follow-up breast MRI in 6 months is recommended to demonstrate stability. Future imaging is recommended as follows: 10/01/2021 screening mammogram. This exam was interpreted at Station ID: [id number]. Electronically Signed By: Stephen Hubbard M.D. ddp/:02/23/2021 10:15:56 Ultrasound BI-RADS: 3 Probably benign BI-RADS CATEGORY: (3) - 3 MRI [id number] 6 month follow-up LATERALITY: (B)
== END 2021-02-23 08:29 | disposition home or self-care (01) ==
LOC: DI 08:28
PROVIDERS: ATTEND Surgery
DX: N63.20 Unspecified lump in the left breast, unspecified quadrant (principal); N63.10 Unspecified lump in the right breast, unspecified quadrant

== ENCOUNTER 2021-06-29 08:50 | Outpatient (CLI) | payer OTHER ==
--- NOTE | 2021-07-09 09:02 | Ultrasound Report ---
LIMITED ULTRASOUND OF LEFT BREAST AND AXILLA: 06/29/2021 CLINICAL: Diffuse left breast pain. Comparison is made to exams dated: 02/23/2021 ultrasound, 02/23/2021 ultrasound - [facility], 01/30/2021 breast MRI - [facility], 11/27/2020 ultrasound biopsy, 11/27/2020 ultrasound b iopsy, and 11/27/2020 mammogram - . Color flow and real-time ultrasound of the left breast 12-6 o'clock, and axilla regions were performe d. Yuan scale images of the real-time examination were reviewed. No new mass seen in the areas of pain. Left breast 5:00 mass measuring 0.9 cm x 0.3 cm. This is not significant changed in size. Prior biops y demonstrated sclerosing adenosis. Left breast 5:00 mass measuring 1.1 cm x 1.0 cm x 0.8 cm. This is slightly decreased in size. This co rresponds to the previously biopsied fibroadenoma. No ultrasound correlate for the previously seen ill-defined enhancing mass in the central breast post erior depth on prior MRI. IMPRESSION: PROBABLY BENIGN No new mass seen in the areas of pain. Left breast 5:00 biopsy proven benign mass measuring 0.9 cm is stable. Left breast 5:00 biopsy proven benign mass measuring 1.1 cm is slightly decreased in size. No ultrasound correlate for the previously seen ill-defined enhancing mass in the central breast post erior depth on prior MRI. A follow-up breast MRI in approximately 2 months is recommended as before for the MRI finding. Right breast probable fibroadenoma MRI finding can be follow-up at that time as well. Mammogram was not preformed today due to pain. Recommend mammogram when tolerable to the patient. Pat ient also due for right mammogram in September 2021. Exam findings were discussed with the patient by Dr. Lee. Patient is advised to monitor for signi ficant change. Clinical follow-up as needed. This exam was interpreted at Station ID: [id number]. Electronically Signed By: Ulysses Curiel M.D. slc/:07/08/2021 16:17:40 Ultrasound BI-RADS: 3 Probably benign BI-RADS CATEGORY: (3) - 3 MRI [id number] 2 month follow-up LATERALITY: (B)
== END 2021-06-29 08:51 | disposition home or self-care (01) ==
LOC: DI 08:50
PROVIDERS: ATTEND Surgery
DX: R59.0 Localized enlarged lymph nodes (principal); N64.4 Mastodynia

== ENCOUNTER 2021-09-22 15:33 | Outpatient (CLI) | payer OTHER ==
--- NOTE | 2021-09-23 11:46 | Mammography Report ---
BILATERAL DIGITAL SCREENING MAMMOGRAM 3D/2D: 09/22/2021 CLINICAL: Family history of breast cancer. Routine screening. Comparison is made to exams dated: 06/29/2021 ultrasound, 02/23/2021 ultrasound, 02/23/20[address] ultrasound - [facility], 01/30/2021 breast MRI - [facility], 11/27/2020 ultrasound biopsy, and 11/27/2020 ultrasound biopsy - [facility]. The tissue of both breasts is heter ogeneously dense. This may lower the sensitivity of mammography. No significant masses, calcifications, or other findings are seen in either breast. There has been no significant interval change. IMPRESSION: NEGATIVE There is no mammographic evidence of malignancy. A 1 year screening mammogram is recommended. This exam was interpreted at Station ID: [id number]. NOTE: For mammograms, a report in lay terms will be sent to the patient. Approximately 15% of breast malignancies will not be visualized mammographically. In the management of a palpable breast mass, a negative mammogram must not discourage biopsy of a clinically suspicious lesion. Electronically Signed By: Jose David Gooden M.D., jr/mayito:09/23/2021 09:15:23 ACR BI-RADS Category 1: Negative 3341F PARENCHYMAL PATTERN: (D) - The breast(s) demonstrate(s) heterogeneously dense fibroglandular parenchy ma. BI-RADS CATEGORY: (1) - 1 RECOMMENDATION: (ANNUAL) - Recommend routine annual screening mammography. [id number] 1 year screening LATERALITY: (B)
== END 2021-09-22 15:34 | disposition home or self-care (01) ==
LOC: DI.N 15:33
DX: Z12.31 Encounter for screening mammogram for malignant neoplasm of breast (principal); Z80.3 Family history of malignant neoplasm of breast

== ENCOUNTER 2021-11-04 11:31 | Outpatient (CLI) | payer OTHER ==
--- NOTE | 2021-11-04 15:05 | XRAY Report ---
PROCEDURE: Wrist 4 View RT INDICATIONS: R WRIST PX TECHNIQUE: 4 views of the wrist were acquired. COMPARISON: None. FINDINGS: Bones: No acute fractures or dislocations. No suspicious bony lesions. Scaphoid view: Intact scaphoid. Soft tissues: No suspicious soft tissue calcifications. IMPRESSION: No acute osseous abnormality. If there is clinical concern or persistent symptoms, additional imaging such as repeat radiographs or advanced imaging (e.g. CT, MRI) may be helpful for further evaluation. Reviewed by: Warren Sheehan MD on 11/04/2021 3:04 PM PST Approved by: Warren Sheehan MD on 11/04/2021 3:04 PM [facility] Station ID: [id number]
--- NOTE | 2021-11-04 15:06 | XRAY Report ---
PROCEDURE: Elbow 3 View RT INDICATIONS: R ELBOW PX TECHNIQUE: 2 views of the elbow were acquired. COMPARISON: None. FINDINGS: Bones: No acute fractures or dislocations. No suspicious bony lesions. Soft tissues: No elbow joint effusion. No suspicious soft tissue calcifications. IMPRESSION: No acute osseous abnormality. If there is clinical concern or persistent symptoms, additional imaging such as repeat radiographs or advanced imaging (e.g. CT, MRI) may be helpful for further evaluation. Reviewed by: Warren Sheehan MD on 11/04/2021 3:04 PM PST Approved by: Warren Sheehan MD on 11/04/2021 3:04 PM PST Station ID: [id number]
--- NOTE | 2021-11-04 17:45 | XRAY Report ---
PROCEDURE: Hand 3 View RT INDICATIONS: R HAND PX TECHNIQUE: 3 views of the hand(s) acquired. COMPARISON: None FINDINGS: Bones: No fractures or dislocations. No suspicious bony lesions. No osseous erosions are periarticu lar osteopenia. No joint space narrowing. Soft tissues: No suspicious soft tissue calcifications. IMPRESSION: No fracture. No osseous lesion. If there are persistent symptoms or continued clinical concern for pa thology, then repeat plain film radiographs (7-10 days) or advanced imaging (CT, MR, bone scan) shoul d be considered for further evaluation. Reviewed by: Suzy Lee MD, PhD on 11/04/2021 5:44 PM PST Approved by: Suzy Lee MD, PhD on 11/04/2021 5:44 PM PST Station ID: [id number]
== END 2021-11-04 11:32 | disposition home or self-care (01) ==
LOC: DI.N 11:31
PROVIDERS: ATTEND Physician Assistant
DX: M25.531 Pain in right wrist (principal); M25.521 Pain in right elbow; M79.641 Pain in right hand

== ENCOUNTER 2022-09-04 14:09 | Outpatient (CLI) | payer OTHER ==
--- NOTE | 2022-09-04 16:14 | CT Report ---
PROCEDURE: CT brain without contrast INDICATIONS: NASAL DISCHARGE TECHNIQUE: Noncontrast 4.5 mm thick angled axial sections acquired from the foramen magnum to the vertex. For r adiation dose reduction, the following was used: automated exposure control, adjustment of mA and/or kV according to patient size. COMPARISON: None. FINDINGS: Image quality: Excellent. CSF spaces: Basal cisterns are patent. No extra-axial fluid collections. Ventricles are normal in size and shape. Brain: No midline shift. No intracranial masses or hemorrhage. Yuan-white matter interface is norm al. Skull and face: Calvarium and visualized facial bones are intact, without suspicious lesions. Sinuses: Visualized sinuses and mastoids are clear. IMPRESSION: Normal CT of the brain Reviewed by: Leonidas Araya MD on 09/04/2022 3:13 PM [facility] Approved by: Leonidas Araya MD on 09/04/2022 3:13 PM [place] Station ID: [id number]
--- NOTE | 2022-09-04 16:17 | CT Report ---
PROCEDURE: Maxillofacial CT without contrast INDICATIONS: UNSPECIFIED INJURY OF HEAD TECHNIQUE: Noncontrast 1.5 mm thick axial images acquired from the mandible through the frontal sinuses, with co mateo and sagittal reformatting. For radiation dose reduction, the following was used: automated ex posure control, adjustment of mA and/or kV according to patient size. COMPARISON: None. FINDINGS: Image quality: Excellent. Bones and teeth: Orbital figueroa are intact. Sinus figueroa show no fracture or deformity. Nasal bones and septum are intact. Visualized portions of the mandible demonstrate no fractures or subluxation. Zygomatic arches are intact. Pterygoid plates are intact. Visualized portions of the skull base an d auditory canals are intact. Sinuses: Paranasal sinuses are aerated, without fluid levels, mucosal thickening, or mucoceles. Mas toid air cells are aerated. Soft tissues: No edema, masses, or fluid collections. No enlarged lymph nodes. No soft tissue lace rations or debris. Vascular: Visualized vascular structures appear normal in the absence of contrast. Bony vascular fo ramina and canals are intact. IMPRESSION: Normal maxillofacial CT. No fracture. Reviewed by: Leonidas Araya MD on 09/04/2022 3:16 PM [place] Approved by: Leonidas Araya MD on 09/04/2022 3:16 PM [place] Station ID: [id number]
--- NOTE | 2022-09-04 16:28 | XRAY Report ---
PROCEDURE: Elbow 2 View RT INDICATIONS: PX IN RT HAND/ELBOW/WRIST TECHNIQUE: 2 views of the elbow were acquired. COMPARISON: None FINDINGS: Bones: No fractures or dislocations. No suspicious bony lesions. Soft tissues: No elbow joint effusion. No suspicious soft tissue calcifications. IMPRESSION: Unremarkable right elbow radiographs Reviewed by: Leonidas Araya MD on 09/04/2022 3:27 PM [place] Approved by: Leonidas Araya MD on 09/04/2022 3:27 PM [facility] Station ID: [id number]
--- NOTE | 2022-09-04 16:29 | XRAY Report ---
PROCEDURE: Wrist 3 View RT INDICATIONS: PX IN RIGHT HAND/ELBOW/WRIST TECHNIQUE: 3 views of the wrist were acquired. COMPARISON: None FINDINGS: Bones: No fractures or dislocations. No suspicious bony lesions. Soft tissues: No suspicious soft tissue calcifications. IMPRESSION: Unremarkable right wrist radiographs Reviewed by: Leonidas Araya MD on 09/04/2022 3:27 PM [place] Approved by: Leonidas Araya MD on 09/04/2022 3:27 PM [place] Station ID: [id number]
== END 2022-09-04 14:10 | disposition home or self-care (01) ==
LOC: DI 14:09
PROVIDERS: ATTEND Registered Nurse
DX: S09.90XA Unspecified injury of head, initial encounter (principal); J34.89 Other specified disorders of nose and nasal sinuses; H57.10 Ocular pain, unspecified eye; M79.641 Pain in right hand; M25.521 Pain in right elbow; M25.531 Pain in right wrist

== ENCOUNTER 2022-12-28 10:24 | Outpatient (CLI) | payer OTHER ==
--- NOTE | 2022-12-29 09:39 | Ultrasound Report ---
LIMITED ULTRASOUND OF LEFT BREAST: 12/28/2022 CLINICAL: Diffuse left breast pain. No prior exams were available for comparison. Color flow and real-time ultrasound of the left breast four quadrants were performed. Yuan scale im ages of the real-time examination were reviewed. There is a 1.1 cm x 0.7 cm x 0.9 cm wider than tall oval mass with a circumscribed margin in the left breast at 5 o'clock middle depth 7 cm from the nipple. This oval mass is hypoechoic with a well-def ined boundary. This abnormality is not significantly changed and correlates with the previous biopsy . There is an associated biopsy clip. Color flow imaging demonstrates that there is an adjacent vas cularity. No other sonographic abnormalities seen in the left breast. IMPRESSION: BENIGN There is no sonographic evidence of malignancy. The 1.1 cm x 0.7 cm x 0.9 cm wider than tall oval mass in the left breast is consistent with previous ly biopsy proven benign mass. It has not changed significantly. There is no abnormality seen in the left breast to correspond with the area of clinical concern and p ain, however, recommend clinical follow up for persistent or worsening symptoms, or development of a ny clinically suspicious findings. A 1 year screening mammogram is recommended. Findings and recommendations were conveyed to the patient during today's evaluation. This exam was interpreted at Station ID: [id number]. Electronically Signed By: Rodney Leonard M.D. aty/:12/28/2022 12:22:12 Ultrasound BI-RADS: 2 Benign BI-RADS CATEGORY: (2) - 2 Mammogram [id number] 1 year screening LATERALITY: (B)
--- NOTE | 2022-12-29 09:39 | Mammography Report ---
BILATERAL DIGITAL DIAGNOSTIC MAMMOGRAM 3D/2D: 12/28/2022 CLINICAL: Diffuse pain in bilateral breasts. Comparison is made to exams dated: 02/19/2022 breast MRI - [facility], 09/22/2021 mammogram - [facility], 01/30/2021 breast MRI - [facility], 11/27/2020 mammogram, 10/17/2020 mammogr am, and 09/30/2020 mammogram - [facility]. Both breasts are heterogeneously dense, which may obscure small masses (category c / 51-75% glandular tissue). No significant masses, calcifications, or other findings are seen in either breast. IMPRESSION: INCOMPLETE: NEEDS ADDITIONAL IMAGING EVALUATION There is no mammographic evidence of malignancy. However, the patient has more localized pain near si te of prior left breast surgery. An ultrasound is recommended for further evaluation and is scheduled to immediately follow this examination. Based on Tyrer-Cuzick model (a risk assessment model), the patient's lifetime risk is 24.7% and her 1 0 year risk is 4.6%. If a patient has an elevated risk, a more comprehensive evaluation should be con sidered and/or a referral to a genetic counselor. The [employer], [employer], and NCCN Guidelines advise the consideration of Breast MRI as an adjunct to screening mammog jaquan in patients whose "Lifetime risk to develop breast cancer" is 20% or higher. This exam was interpreted at Station ID: [id number]. NOTE: For mammograms, a report in lay terms will be sent to the patient. Approximately 15% of breast malignancies will not be visualized mammographically. In the management of a palpable breast mass, a negative mammogram must not discourage biopsy of a clinically suspicious lesion. Electronically Signed By: Rodney Leonard M.D. aty/:12/28/2022 11:12:54 ACR BI-RADS Category 0: Incomplete 3340F PARENCHYMAL PATTERN: (D) - The breast(s) demonstrate(s) heterogeneously dense fibroglandular parenchy ma. BI-RADS CATEGORY: (0) - 0 Ultrasound [id number] Immediate follow-up LATERALITY: (L)
== END 2022-12-28 10:25 | disposition home or self-care (01) ==
LOC: DI 10:24
PROVIDERS: ATTEND Naturopath
DX: N64.4 Mastodynia (principal); N63.23 Unspecified lump in the left breast, lower outer quadrant

== ENCOUNTER 2023-10-18 15:47 | Emergency (ER) | payer OTHER ==
[2023-10-18] MEDS: ONDANSETRON ODT 4 MG TABLET TL STA (16:14)
[2023-10-18 17:09] LABS: B. PARAPERTUSSIS- RESP PCR PAN NOT DETECTED; B. PERTUSSIS- RESP PCR PANEL NOT DETECTED; C. PNEUMONIAE- RESP PCR PANEL NOT DETECTED; CORONAVIRUS 229E-RESP PCR NOT DETECTED; CORONAVIRUS HKU1-RESP PCR NOT DETECTED; CORONAVIRUS NL63-RESP PCR NOT DETECTED; CORONAVIRUS OC43-RESP PCR NOT DETECTED; HUMAN METAPNEUMOVIRUS NOT DETECTED; INFLUENZA A- RESP PCR PANEL NOT DETECTED; INFLUENZA B - RESP PCR PANEL NOT DETECTED; M. PNEUMONIAE- RESP PCR PANEL NOT DETECTED; PARAINFLUENZA VIRUS 1 NOT DETECTED; PARAINFLUENZA VIRUS 2 NOT DETECTED; PARAINFLUENZA VIRUS 3 NOT DETECTED; PARAINFLUENZA VIRUS 4 NOT DETECTED; RHINOVIRUS/ENTEROVIRUS NOT DETECTED; RSV- RESP PCR PANEL NOT DETECTED; SARS-CoV-2 -RESP PCR PANEL NOT DETECTED
[2023-10-18] MEDS: SODIUM CHLORIDE 0.9% 1,000 ML IV STA ×2 (19:00→20:14)
[2023-10-18 19:12] LABS: BASOPHILS % (AUTO) 0.2 %; EOSINOPHILS % (AUTO) 0.1 %; HCT - HEMATOCRIT 36.9 % (37.0-47.0); HGB - HEMOGLOBIN 12.2 g/dL (12.0-16.0); LYMPHOCYTES % (AUTO) 11.4 %; MEAN CORPUSCULAR HEMOGLOBIN 30.4 pg (27.0-31.0); MEAN CORPUSCULAR HGB CONC 33.1 g/dL (32.0-36.0); MEAN PLATELET VOLUME 10.1 fL (7.9-10.8); MONOCYTES # (AUTO) 0.5 10^3/uL (0.0-1.0); NEUTROPHILS # (AUTO) 7.6 10^3/uL (1.5-6.6); NEUTROPHILS % (AUTO) 83.2 %; PLT - PLATELET COUNT 293 10^3/uL (130-450); RED BLOOD COUNT 4.01 10^6/uL (4.20-5.40); RED CELL DISTRIBUTION WIDTH 12.2 % (12.0-15.0); WHITE BLOOD COUNT 9.1 x10^3/uL (4.8-10.8)
[2023-10-18] MEDS: KETOROLAC 15 MG/ML VIAL IVP STA (19:13)
[2023-10-18] MEDS: DROPERIDOL 5 MG/2 ML VIAL IVP STA (19:13)
--- NOTE | 2023-10-18 19:13 | ED Physician Documentation ---
History of Present Illness - Stated complaint Stated Complaint: LORENZO,NAUSEA - Chief complaint Chief Complaint: Heent - History obtained from History obtained from: Patient, Family - Additonal information Additional information: Patient is a 43-year-old female who presents to the emergency department with a headache. She states this been ongoing for the past 1 year. She is here with her family. 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 She states that her blood pressure was 70/50 yesterday. No syncope, no chest pain. No shortness of breath. No fevers. No chills. Has not taken anything for the headache. She states she is on supplements at home but is unsure which ones. Review of Systems Constitutional: denies: Fever, Chills Cardiac: denies: Chest pain / pressure, Palpitations : denies: Dysuria Skin: denies: Rash Musculoskeletal: denies: Neck pain, Back pain Neurologic: denies: Confused, LOC PD PAST MEDICAL HISTORY - Past Medical History Past Medical History: Yes Cardiovascular: Murmur Respiratory: Pneumonia Neuro: Migraines Endocrine/Autoimmune: None GI: None INDUSTRY OPERATIONS INVESTIGATOR: None : None HEENT: Chronic sinusitis Psych: None Musculoskeletal: Other Derm: None - Past Surgical History Past Surgical History: Yes Ortho: Other /INDUSTRY OPERATIONS INVESTIGATOR: section, Other - Present Medications Home Medications: Ambulatory Orders Medication Instructions Recorded Confirmed Propranolol HCl 20 mg PO BID #60 tablet 10/18/23 - Allergies Allergies/Adverse Reactions: Allergies Allergy/AdvReac Type Severity Reaction Status Date / Time adhesive tape AdvReac Rash Verified 10/18/23 15:57 - Social History Does the pt smoke?: No Smoking Status: Never smoker Does the pt drink ETOH?: Yes Does the pt have substance abuse?: No - Immunizations Immunizations are current?: Yes - POLST Patient has POLST: No PD ED PE NORMAL - Vitals Vital signs reviewed: Yes - General General: Alert and oriented X 3, No acute distress - HEENT HEENT: Moist mucous membranes - Neck Neck: Supple, no meningeal sign - Cardiac Cardiac: RRR, Strong equal pulses - Respiratory Respiratory: No respiratory distress, Clear bilaterally - Abdomen Abdomen: Soft, Non tender, Non distended - Derm Derm: Warm and dry - Neuro Neuro: Alert and oriented X 3, 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-12 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, No motor deficit, No sensory deficit, Normal speech Eye Opening: Spontaneous Motor: Obeys Commands Verbal: Oriented GCS Score: 15 - Psych Psych: Normal mood, Normal affect Results - Vitals Vitals: Vital Signs - 24 hr 10/18/23 10/18/23 10/18/23 15:50 18:58 20:00 Temperature 36.9 C Heart Rate 120 H 120 H 111 H Respiratory 17 16 17 Rate Blood Pressure 140/73 H 108/58 L O2 Saturation 97 97 10/18/23 20:30 Temperature Heart Rate 103 H Respiratory 16 Rate Blood Pressure O2 Saturation 97 Oxygen O2 Source Room air - Labs Labs: Laboratory Tests 10/18/23 10/18/23 10/18/23 15:59 19:04 19:04 WBC 9.1 RBC 4.01 L Hgb 12.2 Hct 36.9 L MCV 92.0 MCH 30.4 MCHC 33.1 RDW 12.2 Plt Count 293 MPV 10.1 Neut # (Auto) 7.6 H Lymph # (Auto) 1.0 L [place] # (Auto) 0.5 Eos # (Auto) 0.0 Baso # (Auto) 0.0 Absolute Nucleated RBC 0.00 Nucleated RBC % 0.0 Sodium 139 Potassium 4.0 Chloride 109 Carbon Dioxide 20 L Anion Gap 10.0 BUN 11 Creatinine 0.4 L Estimated GFR (MDRD) 173 Glucose 99 Calcium 9.1 Total Bilirubin 0.4 AST 17 ALT 23 Alkaline Phosphatase 59 Total Protein 6.1 L Albumin 3.7 Globulin 2.4 Albumin/Globulin Ratio 1.5 Lipase < 10 L TSH < 0.01 L Free T4 Direct 5.58 H Nasal Adenovirus (PCR) NOT DETECTED Nasal B. parapertussis DNA (PCR) NOT DETECTED Nasal Coronavir 229E PCR NOT DETECTED Nasal Coronavir HKU1 PCR NOT DETECTED Nasal Coronavir NL63 PCR NOT DETECTED Nasal Coronavir OC43 PCR NOT DETECTED Nasal Enterovir/Rhinovir PCR NOT DETECTED Nasal Influenza B PCR NOT DETECTED Nasal Influenza A PCR NOT DETECTED Nasal Parainfluen 1 PCR NOT DETECTED Nasal Parainfluen 2 PCR NOT DETECTED Nasal Parainfluen 3 PCR NOT DETECTED Nasal Parainfluen 4 PCR NOT DETECTED Nasal RSV (PCR) NOT DETECTED Nasal B.pertussis DNA PCR NOT DETECTED Nasal C.pneumoniae (PCR) NOT DETECTED Anselmo Human Metapneumo PCR NOT DETECTED Nasal M.pneumoniae (PCR) NOT DETECTED Nasal SARS-CoV-2 (PCR) NOT DETECTED PD Medical Decision Making - ED course Complexity details: reviewed results, re-evaluated patient, considered differential, d/w patient ED course: 43-year-old female presents to the emergency department with a headache, ongoing dehydration and tachycardia. Thyroid studies were sent due to the tachycardia. TSH is undetectable, free T4 is elevated. Will start her on propranolol. Respiratory PCR is negative. Headache resolved with Toradol and droperidol. She will follow-up with her PCP for further care of her hyperthyroidism. Patient counseled regarding signs and symptoms for which I believe and urgent re-evaluation would be necessary. Patient with good understanding of and agreement to plan and is comfortable going home at this time This document was made in part using voice recognition software. While efforts are made to proofread this document, sound alike and grammatical errors may occur. Departure - Departure Disposition: 01 Home, Self Care Clinical Impression: Hyperthyroidism, Dehydration Headache Qualifiers: Headache type: unspecified Headache chronicity pattern: acute headache Intractability: not intractable Qualified Code(s): R51.9 - Headache, unspecified Condition: Good Instructions: ED Dehydration, ED Cephalgia Unspecified, ED Hyperthyroidism Follow-Up: your,doctor in 1 week [Other] Prescriptions: Propranolol HCl 20 mg PO BID #60 tablet Comments: Your prescription was sent to [facility] in [place]. You were dehydrated tonight. You were given IV fluids. Your thyroid tests are abnormal as well. Your TSH is less than 0.01. Your free T4 is 5.58. This is consistent with hyperthyroidism. You will need further workup for hyperthyroidism with your primary care provider. We have started you on propranolol which will help to decrease your heart rate until you are seen by your doctor. Please return if y ou worsen. Forms: PCP List
[2023-10-18 19:34] LABS: ALBUMIN 3.7 g/dL (3.2-5.5); ALBUMIN/GLOBULIN RATIO 1.5 (1.0-2.2); ALKALINE PHOSPHATASE 59 IU/L (42-121); ALT ALANINE AMINOTRANSFERASE 23 IU/L (10-60); AST ASPARTATE AMINOTRANSFERASE 17 IU/L (10-42); BILIRUBIN,TOTAL 0.4 mg/dL (0.2-1.0); BUN - BLOOD UREA NITROGEN 11 mg/dL (6-20); CALCIUM 9.1 mg/dL (8.5-10.3); CARBON DIOXIDE - CO2 20 mmol/L (21-32); CHLORIDE 109 mmol/L (101-111); CREATININE 0.4 mg/dL (0.6-1.3); GFR - MDRD 173 (>89); GLUCOSE 99 mg/dL (74-104); SODIUM 139 mmol/L (135-145); TOTAL PROTEIN 6.1 g/dL (6.4-8.9)
[2023-10-18 19:58] LABS: LIPASE < 10 U/L (11-82)
[2023-10-18 20:38] LABS: THYROID STIMULATING HORMONE < 0.01 uIU/mL (0.34-5.60)
[2023-10-18] MEDS: PROPRANOLOL 10 MG TABLET PO STA (21:47)
[2023-10-18 22:27] VITALS: BP 108/76; O2SAT 99
== END 2023-10-18 21:30 | disposition home or self-care (01) ==
LOC: ED 15:47
DX: R51.9 Headache, unspecified (principal); E86.0 Dehydration; E05.90 Thyrotoxicosis, unspecified without thyrotoxic crisis or storm
CPT/HCPCS: 36415; 80053; 83690; 84439; 84443; 85025; 87633; 96361; 96374; 99283; 99284; A9270; Q0162

== ENCOUNTER 2023-10-21 14:44 | Outpatient (CLI) | payer OTHER ==
[2023-10-21 15:33] LABS: THYROID STIMULATING HORMONE < 0.01 uIU/mL (0.34-5.60)
[2023-10-22 19:07] LABS: THYROGLOBULIN ANTIBODY <1.0 IU/mL (0.0-0.9); THYROID PEROXIDASE (TPO) AB 9 IU/mL (0-34)
== END 2023-10-21 14:45 | disposition home or self-care (01) ==
LOC: LAB 14:44
PROVIDERS: ATTEND Naturopath
DX: Z13.29 Encounter for screening for other suspected endocrine disorder (principal)
CPT/HCPCS: 36415; 84439; 84443; 84445; 84481; 84482; 86376; 86800

== ENCOUNTER 2023-10-25 13:25 | Outpatient (CLI) | payer OTHER | END 2023-10-25 13:26 | disposition home or self-care (01) | LOC: LAB 13:25 | PROVIDERS: ATTEND Naturopath | DX: Z13.29 Encounter for screening for other suspected endocrine disorder (principal) | CPT/HCPCS: 83520 ==

== ENCOUNTER 2023-11-07 12:19 | Outpatient (CLI) | payer OTHER ==
[2023-11-07 13:12] LABS: THYROID STIMULATING HORMONE < 0.01 uIU/mL (0.34-5.60)
[2023-11-08 20:07] LABS: THYROGLOBULIN ANTIBODY <1.0 IU/mL (0.0-0.9); THYROID PEROXIDASE (TPO) AB 13 IU/mL (0-34)
== END 2023-11-07 12:20 | disposition home or self-care (01) ==
LOC: LAB 12:19
PROVIDERS: ATTEND Naturopath
DX: Z13.29 Encounter for screening for other suspected endocrine disorder (principal)
CPT/HCPCS: 36415; 84439; 84443; 84445; 84481; 84482; 86376; 86800

== ENCOUNTER 2023-11-18 10:15 | Outpatient (CLI) | payer OTHER ==
[2023-11-18 10:57] LABS: THYROID STIMULATING HORMONE < 0.01 uIU/mL (0.34-5.60)
== END 2023-11-18 10:16 | disposition home or self-care (01) ==
LOC: LAB 10:15
PROVIDERS: ATTEND Naturopath
DX: E05.90 Thyrotoxicosis, unspecified without thyrotoxic crisis or storm (principal); Z13.29 Encounter for screening for other suspected endocrine disorder
CPT/HCPCS: 36415; 84439; 84443; 84445; 84481; 84482; 86376; 86800

== ENCOUNTER 2024-01-03 13:11 | Outpatient (CLI) | payer OTHER ==
[2024-01-03 13:53] LABS: THYROID STIMULATING HORMONE < 0.01 uIU/mL (0.34-5.60)
[2024-01-04 20:07] LABS: THYROGLOBULIN ANTIBODY <1.0 IU/mL (0.0-0.9); THYROID PEROXIDASE (TPO) AB <9 IU/mL (0-34)
== END 2024-01-03 13:12 | disposition home or self-care (01) ==
LOC: LAB 13:11
PROVIDERS: ATTEND Naturopath
DX: E05.90 Thyrotoxicosis, unspecified without thyrotoxic crisis or storm (principal); Z13.29 Encounter for screening for other suspected endocrine disorder
CPT/HCPCS: 36415; 84439; 84443; 84445; 84481; 84482; 86376; 86800

== ENCOUNTER 2024-03-11 19:59 | Emergency (ER) | payer OTHER ==
[2024-03-11 20:55] VITALS: BP 165/93; O2SAT 100
--- NOTE | 2024-03-11 22:30 | ED Physician Documentation ---
PD HPI UPPER EXT INJURY - Stated complaint Stated Complaint: DOG BITE - Chief complaint Chief Complaint: Laceration - History obtained from History obtained from: Patient - Additonal information Additional information: The patient comes to the emergency department with chief complaint of dog bite. [place] dog [place] to attack her dog and she tried to break them up. She reached down and the dog bit her left thumb. She mainly has puncture wounds. No other injuries or complaints. This happened just prior to coming into the emergency department. Patient does not know when her last tetanus shot was. PD PAST MEDICAL HISTORY - Past Medical History Past Medical History: Yes Cardiovascular: Murmur Respiratory: Pneumonia Neuro: Migraines Endocrine/Autoimmune: None GI: None CLIENT FINANCE ANALYST: None : None HEENT: Chronic sinusitis Psych: None Musculoskeletal: Other Derm: None - Past Surgical History Past Surgical History: Yes Ortho: Other /CLIENT FINANCE ANALYST: section, Other - Present Medications Home Medications: Ambulatory Orders Medication Instructions Recorded Confirmed Amox/Clav 875/125 [Augmentin] 1 each PO Q12H #14 tablet 03/11/24 - Allergies Allergies/Adverse Reactions: Allergies Allergy/AdvReac Type Severity Reaction Status Date / Time adhesive tape AdvReac Rash Verified 03/11/24 20:36 - Social History Does the pt smoke?: No Smoking Status: Never smoker Does the pt drink ETOH?: Yes Does the pt have substance abuse?: No - Immunizations Immunizations are current?: Yes - POLST Patient has POLST: No PD ED PE NORMAL - Vitals Vital signs reviewed: Yes - General General: Alert and oriented X 3, No acute distress, Well developed/nourished - HEENT HEENT: Atraumatic, EOMI, Moist mucous membranes - Neck Neck: Supple, no meningeal sign - Cardiac Cardiac: Strong equal pulses - Respiratory Respiratory: No respiratory distress - Derm Derm: Normal color, Warm and dry, No rash, Other (4 puncture wounds, 1 at either side of left thumbnail and 1 at either side of base of thumb. Bleeding controlled. No laceration. No swelling. No erythema.) - Extremities Extremities: No deformity, Other (Intact extension and flexion of left thumb against pressure.) - Neuro Neuro: Alert and oriented X 3, No motor deficit, No sensory deficit - Psych Psych: Normal mood, Normal affect Results - Vitals Vitals: Vital Signs - 24 hr 03/11/24 03/11/24 20:32 23:11 Temperature 36.0 C L 36.4 C L Heart Rate 81 78 Respiratory 20 20 Rate Blood Pressure 165/93 H 165/93 H O2 Saturation 100 100 Oxygen O2 Source Room air PD Medical Decision Making - ED course Complexity details: considered differential, d/w patient ED course: The patient had what appeared to be fairly minor puncture wounds of her left thumb. Because the puncture wounds are from the bite and in the hand I will start antibiotics from patient. She was given first dose here. Our system indicated that the patient's last tetanus shot was 8 years ago, so she still has 2 more years before she is due to have another one. Wounds were washed and dressed with bacitracin. The patient is stable for discharge home. She has no emergent condition and no evidence of acute infection or serious injury from the dog bite. She may follow-up with her primary doctor as needed. Departure - Departure Disposition: 01 Home, Self Care Clinical Impression: Dog bite of hand Qualifiers: Encounter type: initial encounter Laterality: left Qualified Code(s): S61.452A - Open bite of left hand, initial encounter Condition: Stable Instructions: ED Bite Dog Prescriptions: Amox/Clav 875/125 [Augmentin] 1 each PO Q12H #14 tablet Comments: You have been started on antibiotics for your dog bite. You have intact strength and motion at all joints of the thumb and no evidence of tendon disruption, which would not be expected given the position of the punctures. Dog bites do not often get them infected but given the punctures and the location, we have started you on antibiotics as a precaution. You should last picker the remainder of your antibiotics At the [facility] in [place] tomorrow morning and take the next dose then. Your thumb will most likely be sore for the next several days but if you begin to notice redness or swelling spreading progressively away from the wound, please get your thumb rechecked. Forms: PCP List Discharge Date/Time: 03/11/24 23:11
[2024-03-11] MEDS: AMOX/CLAV 875 MG/125 MG TABLET PO STA (22:38)
[2024-03-11] MEDS: BACITRACIN ZINC OINT 1 PACKET TOP STA (22:39)
== END 2024-03-11 23:11 | disposition home or self-care (01) ==
LOC: ED 19:59
DX: S61.052A Open bite of left thumb without damage to nail, initial encounter (principal); W54.0XXA Bitten by dog, initial encounter; Y92.832 Beach as the place of occurrence of the external cause
CPT/HCPCS: 99283; A9270

== ENCOUNTER 2024-04-19 19:32 | Outpatient (CLI) | payer OTHER ==
--- NOTE | 2024-04-20 14:37 | XRAY Report ---
PROCEDURE: Finger(s) LT INDICATIONS: LEFT THUMB PAIN TECHNIQUE: AP hand, 2 views of the finger(s) acquired. COMPARISON: None. FINDINGS: Bones: No fractures or dislocations. No suspicious bony lesions. Soft tissues: No suspicious soft tissue calcifications or masses. IMPRESSION: No acute bony abnormality. No foreign body seen. Reviewed by: Cheo Smyth MD on 04/20/2024 2:36 PM PDT Approved by: Cheo Smyth MD on 04/20/2024 2:36 PM PDT Station ID: [id number]
== END 2024-04-19 19:33 | disposition home or self-care (01) ==
LOC: DI 19:32
PROVIDERS: ATTEND Naturopath
DX: M79.645 Pain in left finger(s) (principal)

== ENCOUNTER 2024-05-14 08:24 | Outpatient (CLI) | payer OTHER ==
--- NOTE | 2024-05-14 12:36 | CT Report ---
PROCEDURE: Upper Extremity LT WO INDICATIONS: LEFT FINGER PAIN TECHNIQUE: Noncontrast 2 mm axial sections were acquired through the elbow joint, with coronal and sagittal refo rmats. For radiation dose reduction, the following was used: automated exposure control, adjustment of mA and/or kV according to patient size. COMPARISON: Left thumb radiographs 04/19/2024 FINDINGS: Image quality: Excellent. Bones: No acute osseous fracture or dislocation. Scaphoid is intact. Carpal bones are normally align ed. Minimal early degenerative spurring at the first carpometacarpal joint, but otherwise no signific ant arthritic changes. No suspicious osseous lesion. Soft tissues: No focal soft tissue edema. No significant joint effusions. The articular cartilages, ligaments, and tendons are not well evaluated with CT. The visualized musculature is normal in bulk. IMPRESSION: No significant osseous abnormality. Reviewed by: Warren Sheehan MD on 05/14/2024 11:35 AM MARLO Approved by: Warren Sheehan MD on 05/14/2024 11:35 AM MARLO Station ID: [id number]
== END 2024-05-14 08:25 | disposition home or self-care (01) ==
LOC: DI 08:24
PROVIDERS: ATTEND Naturopath
DX: M18.11 Unilateral primary osteoarthritis of first carpometacarpal joint, right hand (principal)

== ENCOUNTER 2024-05-23 16:42 | Outpatient (CLI) | payer OTHER ==
[2024-05-23] MEDS ORDERED: GADOTERATE MEGLUMINE 7.5 MMOL/15 ML VIAL ONE (16:57)
[2024-05-23] MEDS: GADOTERATE MEGLUMINE 7.5 MMOL/15 ML VIAL IVP ONE (18:32)
--- NOTE | 2024-05-24 16:16 | MRI Report ---
PROCEDURE: Finger(s) LT W/WO INDICATIONS: PAIN IN L FINGERS TECHNIQUE: Noncontrast oblique coronal T1 spin echo and T2 fast spin echo with fat saturation, axial and sagitta l T2 fast spin echo with fat saturation, through the thumb. Axial, coronal and sagittal T1 fat-sat im ages through left thumb were also obtained. COMPARISON: CT of left the hand dated 05/14/2024. FINDINGS: Image quality: Excellent. Bones: Alignment of left thumb is anatomic. No fracture or dislocation. There is T2 hyperintense sign al throughout proximal and distal phalanges is seen. No definite cortical erosion or abnormal periost eal reaction. No gross T1 signal abnormality is seen. After IV contrast infusion, no definite contras t enhancement is seen. No other area of abnormal marrow signal. Soft tissues: There is soft tissue swelling and edema involving distal portion of left thumb and show mild heterogeneous contrast enhancement. No discrete drainable peripherally enhancing fluid collecti on is. No enhancing soft tissue mass is seen. Extensor and flexor tendons of left thumb are intact. M edial and lateral collateral ligaments at first interphalangeal joint first MCP joint are intact. IMPRESSION: 1. Soft tissue swelling and edema involving distal portion of left thumb suggestive of cellulitis. No discrete drainable abscess collection. 2. Questionable and T2 hyperintensity involving first proximal and distal phalanges without associate d T1 hypointensity. No definite intraosseous enhancement is seen. Finding most likely represent artif act secondary to incompletely fat sat in distal portion of the fingers. Very early osteomyelitis jadiel ot be entirely excluded. Clinical and radiographic follow-up is recommended. 3. Extensor and flexor tendons of left thumb are intact. No left thumb muscle signal abnormalities. N o enhancing soft tissue mass. Reviewed by: Ron Langford MD on 05/24/2024 4:15 PM PDT Approved by: Ron Langford MD on 05/24/2024 4:15 PM PDT Station ID: [id number]
== END 2024-05-23 16:43 | disposition home or self-care (01) ==
LOC: DI 16:42
PROVIDERS: ATTEND Naturopath
DX: R93.6 Abnormal findings on diagnostic imaging of limbs (principal); R93.89 Abnormal findings on diagnostic imaging of other specified body structures